=== PATIENT | male | born 1970 | race Caucasian/White ===

== ENCOUNTER 2021-05-08 07:18 | Emergency (ER) | payer OTHER ==
--- NOTE | 2021-05-08 07:53 | ED ---
URI HPI - General Chief Complaint: Upper Respiratory Infection Stated Complaint: covid symptoms Time Seen by Provider: 05/08/21 07:20 Source: patient, RN notes reviewed Mode of arrival: ambulatory Limitations: no limitations - History of Present Illness Initial Comments: 50-year-old male presents emergency from chief complaint of possible Covid 19. Patient states his been sick for 1 week. Patient has nasal congestion, chest congestion, cough, body aches, fever or chills. Patient states she just feels very weak, run down feeling he states that he is up. Visiting from [place], he states that his cousin tested positive for they were splitting wood last weekend. Patient denies any nausea vomiting diarrhea constipation. - Related Data Allergies Allergy/AdvReac Type Severity Reaction Status Date / Time onion Allergy Unknown Verified 05/08/21 07:40 Review of Systems ROS Statement: Those systems with pertinent positive or pertinent negative responses have been documented in the HPI. ROS Other: All systems not noted in ROS Statement are negative. Past Medical History Additional Past Medical History / Comment(s): SLEEP APNEA History of Any Multi-Drug Resistant Organisms: None Reported Additional Past Surgical History / Comment(s): VARICOSE VEIN REMOVED Past Psychological History: No Psychological Hx Reported Smoking Status: Never smoker Past Alcohol Use History: None Reported Past Drug Use History: None Reported General Exam Limitations: no limitations General appearance: alert, in no apparent distress Head exam: Present: atraumatic, normocephalic, normal inspection Eye exam: Present: normal appearance, PERRL, EOMI. Absent: scleral icterus, conjunctival injection, periorbital swelling ENT exam: Present: normal exam, normal oropharynx, mucous membranes moist Neck exam: Present: normal inspection, full ROM. Absent: tenderness, meningismus, lymphadenopathy Respiratory exam: Present: rhonchi. Absent: normal lung sounds bilaterally, respiratory distress, wheezes, rales, stridor Cardiovascular Exam: Present: regular rate, normal rhythm, normal heart sounds. Absent: systolic murmur, diastolic murmur, rubs, gallop, clicks Course Vital Signs 05/08/21 07:37 Temperature 99.1 F Pulse Rate 97 Respiratory 16 Rate Blood Pressure 126/86 O2 Sat by Pulse 97 Oximetry Medical Decision Making - Medical Decision Making 50-year-old male presented to MRSA Department for cough congestion. Patient is COVID-19 positive. Patient will receive monoclonal antibodies, patient has no hypoxia vitals are stable be discharged stable condition return parameters discussed. - Lab Data Lab Results 05/08/21 Range/Units 07:43 Coronavirus (PCR) Detected A (Not Detectd) Disposition Clinical Impression: COVID-19 Disposition: HOME SELF-CARE Condition: Stable Instructions (If sedation given, give patient instructions): Coronavirus Disease 2019 (COVID-19) Additional Instructions: Please return to the Emergency Department if symptoms worsen or any other concerns. Is patient prescribed a controlled substance at d/c from ED?: No Referrals: Nonstaff,Physician [Primary Care Provider] - 1-2 days Time of Disposition: 08:35
[2021-05-08] MEDS ORDERED: SODIUM CHLORIDE 0.9% 2,000 ML IV ONE (08:20)
--- NOTE | 2021-05-08 08:31 | XR ---
EXAMINATION TYPE: XR chest 2V DATE OF EXAM: 05/08/2021 COMPARISON: NONE HISTORY: Cough and congestion. TECHNIQUE: Frontal and lateral views of the chest are obtained. FINDINGS: There are patchy bilateral multifocal opacities. Is no pleural effusion or pneumothorax s een bilaterally. The cardiac silhouette size is within normal limits. The osseous structures are in tact. IMPRESSION: Patchy bilateral multifocal opacities suspicious for covid-19 infection, correlate clini yemi.
[2021-05-08] MEDS ORDERED: CASIRIVIMAB (REGN10933) (EUA) 600 MG, IMDEVIMAB (REGN10987) (EUA) 600 MG in SODIUM CHLO... IVPB ONE (09:15)
[2021-05-08] MEDS ORDERED: SODIUM CHLORIDE 0.9% 50 ML IVPB ONE (09:15)
[2021-05-08 13:07] VITALS: RESP 18
[2021-05-08 13:08] VITALS: BP 133/82; PULSE 84
[2021-05-08] MEDS ORDERED: ACETAMINOPHEN TAB 500 MG TAB PO STA (13:12)
[2021-05-08 13:17] VITALS: TEMP 101.1
== END 2021-05-08 13:08 | disposition home or self-care (01) ==
LOC: EC 07:18
DX: U07.1 COVID-19 (principal)
CPT/HCPCS: 87635; 71046; 99283; 96360; Q0243